=== PATIENT | female | born 1955 | race Two or more races ===

== ENCOUNTER → 2016-09-09 | Outpatient (CLI) | payer MEDICARE, MEDICAID ==
[~2016-09-09] MED LIST: ASPIR 8181 MG PO; CLARITIN10 MG PO; LEVEMIR FL100 UNIT/1 SUB-Q; LEXAPRO20 MG PO; LOPRESSOR25 MG PO; NEURONTIN300 MG PO; NORVASC2.5 MG PO; NOVOLOG100 UNIT/M SUB-Q; PRAVACHOL40 MG PO
== END | disposition disaster alternative care site (69) ==
LOC: GNUT 08-26 13:00
DX: E11.65 Type 2 diabetes mellitus with hyperglycemia (principal)

== ENCOUNTER → 2016-09-13 | Outpatient (CLI) | payer MEDICARE, MEDICAID | LOC: GDIC 12:41 | DX: E11.9 Type 2 diabetes mellitus without complications (principal); Z53.8 Procedure and treatment not carried out for other reasons | CPT/HCPCS: G0108 ==

== ENCOUNTER → 2016-10-06 | Outpatient (CLI) | payer MEDICARE, MEDICAID | END | disposition disaster alternative care site (69) | LOC: GDIC 10:47 | DX: E11.65 Type 2 diabetes mellitus with hyperglycemia (principal); Z79.4 Long term (current) use of insulin | CPT/HCPCS: G0108 ==